=== PATIENT | female | born 1950 | race Caucasian/White ===

== ENCOUNTER 2016-10-15 15:09 | Emergency (ER) | payer OTHER ==
--- NOTE | ~2016-10-15 | CR253 ---
[facility] A Service of [facility] & [facility] RADIOLOGY TEXT RESULTS PATIENT: BREEZY SHEPARD LOCATION: CFTX : 46 UNIT #: [id number] AGE: [address]: Cherise Atkinson APRN SEX: F ORDER DR: [id number] [facility] [address] [place], [place] [address] [id number] MR#: [id number] #: [id number] NAME: BREEZY SHEPARD : 1950 SEX: F STUDY DATE/TIME: 10/15/2016 16:56 UNIT: [facility] ROOM: STUDY DESCRIPTION: CR Tibia and Fibula 2 Views Rt Attending Physician: Cherise Atkinson A.P.R.N. Ordering Physician: Ed Luis M Marie M.D. Primary Care Physician: Donna Moser M.D. MEDICAL IMAGING REPORT This report is preliminary unless electronic signature is present EXAM Right lower leg. HISTORY Nail got ejected from lawnmower 2 hours ago, impaled in lower leg. FINDINGS Two views of the right lower leg demonstrates a partially embedded nail within the soft tissues of the medial posterior aspect lower leg, just above the ankle joint. No underlying osseous abnormality identified. No soft tissue gas. 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 The ankle joint unremarkable. Dictated by... Lorna Weiner M.D. THIS IS AN ELECTRONICALLY VERIFIED REPORT Lorna Weiner M.D. at 10/15/2016 9:14 PM MITZY/jacque TD: 10/15/2016 17:54 JOB #: [id number] MEDICAL IMAGING REPORT Page 1 of 1 COPY
== END 2016-10-15 18:18 | disposition home or self-care (01) ==
LOC: CFTX 15:09 → CED 15:09 → CFTX 17:01
DX: S81.821A Laceration with foreign body, right lower leg, initial encounter (principal); W45.0XXA Nail entering through skin, initial encounter; Y92.009 Unspecified place in unspecified non-institutional (private) residence as the place of occurrence of the external cause; E11.9 Type 2 diabetes mellitus without complications; I10 Essential (primary) hypertension; Z23 Encounter for immunization
CPT/HCPCS: 12031; 73590; 82947; 90471; 90715; 99284